=== PATIENT | female | born 1950 | race Caucasian/White ===

== ENCOUNTER → 2017-10-26 13:50 | Outpatient (CLI) | payer MEDICARE, BC, SELFPAY ==
--- NOTE | 2017-10-26 | DI.ECHO.S_ITS ---
[facility] +---------+ : : [address] : [address] [address] : : : : [id number] : : : : Phone: [phone]+ Echocardiogram Report + + :Name: JESSY STEINBERG V Study Date: 10/26/2017 Height: 66 in : :[facility] Exam Location: [facility] Weight: 150 lb : : Gender: Female BSA: 1.8 m2 : :: 1950 Age: 67 yrs BP: 110/60 mmHg: :Reason For Study: Scleroderma : : Performed By: Odalis Page : + + Interpretation Summary The left ventricle is normal in size, wall thickness, and systolic function without any focal wall motion abnormalities. The ejection fraction is estimated to be 60-65%. Assessment of diastolic parameters indicates normal left ventricular diastolic function and normal filling pressures. The right ventricle is normal in size and function. The right ventricular systolic pressure is estimated at 31 mmHg assuming a right atrial pressure of 8 mm Hg. There is no significant valvular heart disease. No other echocardiographic abnormalities seen. Procedure: A two-dimensional transthoracic echocardiogram with color flow and Doppler was performed. The study quality was technically adequate. Comparison is made with the echocardiogram of 05/05/2017. The patient was in normal sinus rhythm during the exam. Left Ventricle: The left ventricle is normal in size, wall thickness, and systolic function without any focal wall motion abnormalities. The ejection fraction is estimated to be 60-65%. Assessment of diastolic parameters indicates normal left ventricular diastolic function and normal filling pressures. Right Ventricle: The right ventricle is normal in size and function. Atria: Both atria are normal in size. There is no Doppler evidence for an interatrial shunt. Mitral Valve: The mitral valve is normal in structure and function. There is trace mitral regurgitation. Aortic Valve: The aortic valve is trileaflet. The aortic valve opens well. There is trace aortic regurgitation. Tricuspid Valve: The tricuspid valve is normal in structure and function. There is a trace or physiologic amount of tricuspid regurgitation. The right ventricular systolic pressure is estimated at 31 mmHg assuming a right atrial pressure of 8 mm Hg. Pulmonic Valve: The pulmonic valve is not well visualized. There is a trace or physiologic amount of pulmonic regurgitation. Great Vessels: The aortic root is normal size. The ascending aorta is normal in size. The aortic arch is normal in size. The pulmonary artery is not well visualized, but is probably normal size. The IVC is of normal diameter and collapses less than 50% with a sniff. This suggests a right atrial pressure of 8 mm Hg. Pericardium/ Pleura There is a small pericardial effusion that is circumferential. There is no pleural effusion. MMode/2D Measurements & Calculations LVIDd: 4.5 cm Ao root diam: 3.2 cm LVIDs: 2.7 cm asc Aorta Diam: 3.3 cm FS: 38.4 % Ao Arch Diam (Prox Trans): 2.4 cm EPSS: 0.13 cm IVSd: 0.70 cm LVPWd: 0.72 cm LV pitt. diameter/BSA (cm/m^2): 2.5 LV sys. diameter/BSA (cm/m^2): 1.6 LA dimension: 2.0 cm RA long axis: 5.6 cm LA A2 area: 19.4 cm2 RA area: 20.9 cm2 LA A4 area: 19.2 cm2 RA vol: 66.0 ml LA length (vol): 5.0 cm RA : 37.3 ml/m2 LA vol: 62.8 ml IVC diam: 2.1 cm LA vol index: 35.5 ml/m2 Doppler Measurements & Calculations Ao V2 max: 125.8 cm/sec LVOT Max Atul: 97.6 cm/sec Ao V2 mean: 89.6 cm/sec LV V1 max P.8 mmHg Ao max P.3 mmHg LV V1 VTI: 22.1 cm Ao mean P.6 mmHg sev ratio: 0.75 Ao V2 VTI: 29.3 cm MV E max atul: 84.2 cm/sec TR max atul: 237.1 cm/sec MV A max atul: 82.4 cm/sec TR max P.5 mmHg MV E/A: 1.0 PA V2 max: 80.4 cm/sec Med Peak E' Atul: 8.5 cm/sec PA V2 mean: 59.3 cm/sec E/E' med: 9.9 PA mean P.5 mmHg Lat Peak E' Atul: 9.3 cm/sec PA Accel Time: 0.14 sec E/E' lat: 9.1 E/e' average: 9.5 MV dec time: 0.23 sec MV P1/2t: 67.0 msec MV P1/2t max atul: 85.3 cm/sec MVA(P1/2t): 3.3 cm2 Reading Physician:05:24 PM
== END ==
PROVIDERS: Family Provider Naturopath; PCP Naturopath; Visit Provider Specialist/Technologist Athletic Trainer
DX: M34.9 Systemic sclerosis, unspecified (principal)
CPT/HCPCS: 93306

== ENCOUNTER → 2019-10-15 15:16 | Outpatient (CLI) | payer MEDICARE, BC, SELFPAY ==
[2019-10-16 14:41] LABS: COVID19 Sendout Not Detected (Not Detect)
== END ==
PROVIDERS: Family Provider Naturopath; PCP Naturopath; Visit Provider Registered Nurse
DX: Z01.812 Encounter for preprocedural laboratory examination (principal)
CPT/HCPCS: 87635

== ENCOUNTER → 2019-10-18 16:43 | Outpatient (CLI) | payer MEDICARE, BC, SELFPAY ==
--- NOTE | 2019-10-25 15:57 | P.PFT.S_ITS ---
Pulmonary Function Test Referral & Results Date Patient Seen: 10/18/19 Requesting provider: Duglas Austin Results: The spirometry demonstrates an FVC of 3.05 L which is 91% of predicted. The FEV1 was measured at 2.29 L which is 89% of predicted. The FEV1/FVC ratio was 75 which is 98% of predicted. Following the administration of bronchodilator there was no significant change. Lung volumes show an SVC of 3.13 L which is 100% of predicted. The diffusing capacity was measured at 21.22 which is 78 % of predicted. No hemoglobin value was provided, so no correction for potential anemia could be made, if appropriate. The maximum voluntary ventilation was normal Interpretation: This study demonstrates mild obstructive lung disease based on very slight reduction FEV1. There is also a moderate reduction in diffusing capacity suggesting element of disease at the capillary alveolar level unless patient is anemic Compared to PFTs performed January 2017, current study is unchanged in the sp irometry but diffusing capacity is now abnormal when it was normal previously
== END ==
PROVIDERS: Family Provider Naturopath; PCP Naturopath; Referring Provider Internal Medicine Rheumatology; Visit Provider Internal Medicine Rheumatology
DX: I27.29 Other secondary pulmonary hypertension (principal); J98.8 Other specified respiratory disorders
CPT/HCPCS: 94060; 94726; 94729

== ENCOUNTER → 2019-11-05 14:48 | Outpatient (CLI) | payer MEDICARE, BC, SELFPAY ==
--- NOTE | 2019-11-05 15:04 | DI.ECHO.S_ITS ---
Echocardiogram Report + + :Name: JESSY STEINBERG V Study Date: 11/05/2019 Height: 66 in : :[facility] Weight: 145 lb : : Gender: Female BSA: 1.7 m2 : :: 1950 Age: 69 yrs BP: 118/64 mmHg: :Reason For Study: SYSTEMIC SCLEROSIS : : Performed By: Aakash Escobar : :Referring: GEORGIANA BOOKER : + + Interpretation Summary The left ventricle is normal in size. The ejection fraction is estimated to be 60-65%. There has been no significant change in LV EF since the previous exam. The right ventricle is normal in size and function. There is mild tricuspid regurgitation. The right ventricular systolic pressure is estimated to be at least 34 mmHg based on an estimated right atrial pressure of 3 mm Hg. There is a trivial to small pericardial effusion noted. There has been no significant change since the previous study. There are no echocardiographic indications of cardiac tamponade. Procedure: A two-dimensional transthoracic echocardiogram with color flow and Doppler was performed. The study quality was technically adequate. Comparison is made with the echocardiogram of 10/26/17. The patient was in normal sinus rhythm during the exam. Left Ventricle: The left ventricle is normal in size. There is normal left ventricular wall thickness. There is no thrombus. The ejection fraction is estimated to be 60-65%. There has been no significant change since the previous exam. There are no focal wall motion abnormalities. Diastolic parameters suggest a relaxation abnormality of the left ventricle, consistent with probable normal filling pressures. Right Ventricle: The right ventricle is normal in size and function. Atria: Both atria are mildly dilated. Both atria have mildly increased in size since the prior echo exam. The interatrial septum is intact with no evidence for an atrial septal defect. Mitral Valve: The mitral valve is normal in structure and function. There is trace mitral regurgitation. Aortic Valve: The aortic valve is trileaflet. The aortic valve opens well. The aortic valve is mildly calcified. There is discrete nodular thickening of the non- coronary cusp. There is no aortic valve stenosis. There is trace aortic regurgitation. Tricuspid Valve: The tricuspid valve is normal. There is mild tricuspid regurgitation. The right ventricular systolic pressure is estimated to be at least 34 mmHg based on an estimated right atrial pressure of 3 mm Hg. Pulmonic Valve: The pulmonic valve is not well seen, but is grossly normal. There is mild pulmonic regurgitation. Great Vessels: The aortic root is normal size. The dimensions of the ascending aorta are normal. Mild atherosclerotic plaque(s) in the aortic arch. The pulmonary artery is normal size. The IVC is of normal diameter and collapses greater than 50% with a sniff. This suggests a low right atrial pressure of 3 mm Hg. Pericardium/ Pleura There is a trivial to small pericardial effusion noted. There has been no significant change since the previous study. There are no echocardiographic indications of cardiac tamponade. There is no pleural effusion. MMode/2D Measurements & Calculations LVIDd: 4.9 cm LVOT diam: 2.0 cm LVIDs: 3.0 cm Ao root diam: 3.0 cm FS: 38.6 % asc Aorta Diam: 3.3 cm EPSS: 0.09 cm Ao Arch Diam (Prox Trans): 2.5 cm IVSd: 0.86 cm LVPWd: 0.60 cm LV pitt. diameter/BSA (cm/m^2): 2.8 LV sys. diameter/BSA (cm/m^2): 1.7 LA dimension: 3.4 cm RA long axis: 5.1 cm LA A2 area: 20.5 cm2 RA area: 19.8 cm2 LA A4 area: 18.5 cm2 RA vol: 65.7 ml LA length (vol): 5.2 cm RA : 37.6 ml/m2 LA vol: 61.9 ml IVC diam: 1.6 cm LA vol index: 35.5 ml/m2 Doppler Measurements & Calculations Ao V2 max: 142.4 cm/sec LVOT Max Atul: 111.9 cm/sec Ao V2 mean: 101.9 cm/sec LV V1 max P.0 mmHg Ao max P.1 mmHg LV V1 VTI: 27.6 cm Ao mean P.5 mmHg DONTAE(I,D): 2.7 cm2 Ao V2 VTI: 31.1 cm DONTAE(V,D): 2.4 cm2 sev ratio: 0.89 DONTAE indexed to BSA (cm^2/m^2): 1.5 MV E max atul: 74.9 cm/sec TR max atul: 277.8 cm/sec MV A max atul: 88.2 cm/sec TR max P.9 mmHg MV E/A: 0.85 PA V2 max: 85.6 cm/sec Med Peak E' Atul: 5.3 cm/sec PA V2 mean: 61.0 cm/sec E/E' med: 14.2 PA mean P.6 mmHg Lat Peak E' Atul: 8.2 cm/sec PA pr(Accel): 23.8 mmHg E/E' lat: 9.1 E/e' average: 11.7 MV dec time: 0.18 sec SV(LVOT): 83.4 ml Reading Physician:06:15 PM
== END ==
PROVIDERS: Family Provider Naturopath; PCP Naturopath; Referring Provider Internal Medicine Rheumatology; Visit Provider Internal Medicine Rheumatology
DX: I07.1 Rheumatic tricuspid insufficiency (principal); I37.1 Nonrheumatic pulmonary valve insufficiency; I70.0 Atherosclerosis of aorta; M34.9 Systemic sclerosis, unspecified
CPT/HCPCS: 93306